=== PATIENT | female | born 1950 | race Two or more races ===

== ENCOUNTER → 2024-06-18 | Outpatient (BNVA) | payer MEDICARE, MEDICAID, SELFPAY | END | disposition home or self-care (01) | PROVIDERS: PCP Nurse Practitioner Family; Referring Provider Nurse Practitioner Family; Visit Provider Nurse Practitioner Family | DX: N30.01 Acute cystitis with hematuria (principal); Z23 Encounter for immunization; I10 Essential (primary) hypertension | CPT/HCPCS: 81001; 90686; 96372; 99215; A4216; J0696 ==

== ENCOUNTER → 2024-06-24 | Outpatient (BNVA) | payer MEDICARE, MEDICAID, SELFPAY | END | disposition home or self-care (01) | PROVIDERS: PCP Nurse Practitioner Family; Referring Provider Nurse Practitioner Family; Visit Provider Nurse Practitioner Family | DX: Z71.2 Person consulting for explanation of examination or test findings (principal); N76.0 Acute vaginitis | CPT/HCPCS: 99213 ==

== ENCOUNTER → 2024-07-01 | Outpatient (CLI) | payer MEDICARE, MEDICAID, SELFPAY ==
--- NOTE | 2024-07-01 14:16 | XR_ITS ---
Examination: Bone densitometry Date and time of exam:July 01, 2024 1430 hours INDICATIONS: Menopause age 50 diabetes history, personal history osteopenia Technique: Lumbar spine and hip total bone mineralization values of an calculated. Peak reference and age match control results have been displayed. Findings: Lumbar spine total bone mineralization is0.908 gm/cm2. This is 1.3 standard deviations below peak reference. This is 1.1 standard deviations above age-matched controls. Hip total bone mineralization is 0.895 gm/cm2 This is 0.5 standard deviations below peak reference. This is 1.2 standard deviations above age-matched controls Impression: There is osteopenia based on lumbar spine measurements. There is osteopenia based on hip measurements Lumbar mineralization is increased 1.4% compared with October 06, 2021 Hip mineralization is increase 4.3% compared with October 07, 2019
== END | disposition home or self-care (01) ==
LOC: CDIM 14:04
PROVIDERS: Referring Provider Internal Medicine; Visit Provider Internal Medicine
DX: M85.89 Other specified disorders of bone density and structure, multiple sites (principal)
CPT/HCPCS: 77080

== ENCOUNTER → 2024-07-08 | Outpatient (BNVA) | payer MEDICARE, MEDICAID, SELFPAY | END | disposition home or self-care (01) | PROVIDERS: PCP Nurse Practitioner Family; Referring Provider Nurse Practitioner Family; Visit Provider Nurse Practitioner Family | DX: M27.9 Disease of jaws, unspecified (principal) | CPT/HCPCS: 96372; 99213; A4216; J0696; A9270 ==

== ENCOUNTER → 2025-02-27 | Outpatient (CLI) | payer MEDICARE, MEDICAID, SELFPAY ==
--- NOTE | 2025-02-27 12:11 | XR_ITS ---
Examination: Duplex scan of the lower extremity, unilateral right Date and time of exam: March 09, 2025 1227 hours INDICATIONS: Right leg pain redness and swelling beginning 2 months ago Technique: Duplex scan of the extremity veins using B-mode/grayscale imaging and Doppler spectral analysis and color flow Attention is directed to internal echogenicity, compression and augmentation involving these veins, color flow assessment, spectral analysis Findings: Major deep venous structures in the extremity demonstrate normal course and caliber. There is no evidence of deep vein thrombosis. Normal color flow and spectral analysis Impression: Negative for DVT..
== END | disposition home or self-care (01) ==
PROVIDERS: PCP Family Medicine; Referring Provider Family Medicine; Visit Provider Family Medicine
DX: M22.41 Chondromalacia patellae, right knee (principal)
CPT/HCPCS: 93971